=== PATIENT | male | born 1975 | race Caucasian/White ===

== ENCOUNTER 2017-06-17 07:00 | Emergency (ER) | payer OTHER ==
[~2017-06-17] VITALS: Ht 170.2 cm; Wt 72.6 kg
[~2017-06-17 07:00] MED LIST: ULTRAM50 MG PO
[2017-06-17] MEDS ORDERED: BACTRIM DS TAB1 EACH PO (08:23)
== END 2017-06-17 09:01 | disposition home or self-care (01) ==
LOC: ED 07:00
PROC: 0T9B70Z Drainage of Bladder with Drainage Device, Via Natural or Artificial Opening (ICD-10-PCS; principal; 2017-06-17)
DX: R33.9 Retention of urine, unspecified (principal); F17.200 Nicotine dependence, unspecified, uncomplicated
CPT/HCPCS: 51702; 81001; 99283

== ENCOUNTER 2017-06-19 12:32 | Emergency (ER) | payer OTHER ==
[~2017-06-19] VITALS: Ht 170.2 cm; Wt 72.6 kg
[~2017-06-19 12:32] MED LIST changes: +BACTRIM DS TAB1 EACH PO
[2017-06-19] MEDS ORDERED: VENTOLIN HFA18 GM INH (13:17)
[2017-06-19] MEDS ORDERED: FLOMAX0.4 MG PO (13:17)
== END 2017-06-19 14:29 | disposition home or self-care (01) ==
LOC: ED 12:32
PROC: 4A0D7LZ Measurement of Urinary Volume, Via Natural or Artificial Opening (ICD-10-PCS; principal; 2017-06-19)
PROC: 0T9B70Z Drainage of Bladder with Drainage Device, Via Natural or Artificial Opening (ICD-10-PCS; principal; 2017-06-19)
DX: N41.9 Inflammatory disease of prostate, unspecified (principal); R33.9 Retention of urine, unspecified; F17.200 Nicotine dependence, unspecified, uncomplicated; Z88.8 Allergy status to other drugs, medicaments and biological substances
CPT/HCPCS: 51702; 51798; 99284

== ENCOUNTER 2017-06-21 18:14 | Emergency (ER) | payer OTHER ==
[~2017-06-21] VITALS: Ht 170.2 cm; Wt 72.6 kg
[~2017-06-21 18:14] MED LIST changes: +FLOMAX0.4 MG PO; +VENTOLIN HFA18 GM INH
== END 2017-06-21 22:25 | disposition home or self-care (01) ==
LOC: ED 18:14
DX: K86.9 Disease of pancreas, unspecified (principal); F17.200 Nicotine dependence, unspecified, uncomplicated; Z79.899 Other long term (current) drug therapy
CPT/HCPCS: 76705; 80053; 81001; 83690; 85025; 96361; 96374; 96375; 99284; J1885; J2405; J7030

== ENCOUNTER 2017-07-19 13:32 | Emergency (ER) | payer OTHER ==
[~2017-07-19] VITALS: Ht 170.2 cm; Wt 72.6 kg
[2017-07-19] MEDS ORDERED: CIPRO500 MG PO (17:21)
== END 2017-07-19 17:30 | disposition home or self-care (01) ==
LOC: ED 13:32
DX: Z46.6 Encounter for fitting and adjustment of urinary device (principal); N41.9 Inflammatory disease of prostate, unspecified; F17.200 Nicotine dependence, unspecified, uncomplicated
CPT/HCPCS: 81001; 87491; 87591; 99283

== ENCOUNTER 2017-09-19 04:25 | Emergency (ER) | payer SELFPAY ==
[~2017-09-19] VITALS: Ht 170.2 cm; Wt 72.6 kg
[~2017-09-19 04:25] MED LIST changes: +CIPRO500 MG PO
== END 2017-09-19 06:30 | disposition home or self-care (01) ==
LOC: ED 04:25
DX: K52.9 Noninfective gastroenteritis and colitis, unspecified (principal); F17.200 Nicotine dependence, unspecified, uncomplicated
CPT/HCPCS: 80053; 85025; 96361; 96374; 96375; 99283; J2270; J2405; J2550; J7030

== ENCOUNTER 2018-10-26 20:57 | Emergency (ER) | payer SELFPAY ==
[~2018-10-26] VITALS: Ht 170.2 cm; Wt 77.1 kg
--- OUTSIDE RECORDS SUMMARY | 2018-10-26 21:00 | XMS ---
PreManage Notification: EBONY LENZ Security Willow Machine Tender Events No recent Security Events currently on file CRITERIA MET - Group Notification CARE PROVIDERS There are no care providers on record at this time. Graciela has no Care Guidelines for this patient. Facundo VISIT COUNT (12 MO.) 1 PATI Chow TOTAL 1 NOTE: Visits indicate total known visits. ED/UCC VISIT TRACKING (12 MO.) 10/26/2018 20:58 [facility] [place] TYPE: Emergency COMPLAINT: - R HAND PAIN INPATIENT VISIT TRACKING (12 MO.) No inpatient visits to display in this time frame [id number]
[2018-10-26] MEDS ORDERED: NAPROXEN500 MG PO (22:20)
== END 2018-10-26 22:28 | disposition home or self-care (01) ==
LOC: ED 20:57
DX: M65.88 Other synovitis and tenosynovitis, other site (principal); F17.200 Nicotine dependence, unspecified, uncomplicated
CPT/HCPCS: 29125; 73110; 99283-25

== ENCOUNTER 2019-10-13 09:45 | Emergency (ER) | payer SELFPAY ==
[~2019-10-13] VITALS: Ht 170.2 cm; Wt 77.1 kg
[~2019-10-13 09:45] MED LIST changes: +NAPROXEN500 MG PO
--- OUTSIDE RECORDS SUMMARY | 2019-10-13 09:48 | XMS ---
PreManage Notification: EBONY LENZ Security Advanced Practice Registered Nurse Events No recent Security Events currently on file CRITERIA MET - Group Notification CARE PROVIDERS There are no care providers on record at this time. Graciela has no Care Guidelines for this patient. Facundo VISIT COUNT (12 MO.) 2 PATI Chow TOTAL 2 NOTE: Visits indicate total known visits. ED/UCC VISIT TRACKING (12 MO.) 10/13/2019 09:46 [facility] [place] TYPE: Emergency COMPLAINT: - POSS ABSCESS 10/26/2018 20:[address] [facility] [place] TYPE: Emergency COMPLAINT: - R HAND PAIN/NO INJURY DIAGNOSES: - Pain in right wrist - Other synovitis and tenosynovitis, other site - Nicotine dependence, unspecified, uncomplicated INPATIENT VISIT TRACKING (12 MO.) No inpatient visits to display in this time frame [id number]
== END 2019-10-13 10:24 | disposition home or self-care (01) ==
LOC: ED 09:45
DX: K40.90 Unilateral inguinal hernia, without obstruction or gangrene, not specified as recurrent (principal); F17.200 Nicotine dependence, unspecified, uncomplicated; Z79.899 Other long term (current) drug therapy
CPT/HCPCS: 99283

== ENCOUNTER 2020-03-22 10:20 | Emergency (ER) | payer OTHER ==
[~2020-03-22] VITALS: Ht 170.2 cm; Wt 77.1 kg
--- OUTSIDE RECORDS SUMMARY | 2020-03-22 10:22 | XMS ---
PreManage Notification: EBONY LENZ Security Cryptologic Linguist Events No recent Security Events currently on file CRITERIA MET - Group Notification CARE PROVIDERS There are no care providers on record at this time. Graciela has no Care Guidelines for this patient. Facundo VISIT COUNT (12 MO.) 1 [facility] 2 PATI Chow TOTAL 3 NOTE: Visits indicate total known visits. [place] [place] (12 MO.) 03/22/2020 10:20 PAT[facility] [place] TYPE: Emergency COMPLAINT: - DOG BITE 01/06/2020 09:[address] [address] [facility] TYPE: Emergency DIAGNOSES: - back pain - Unilateral inguinal hernia, without obstruction or gangrene, - Sciatica, unspecified side 10/13/2019 09:46 [facility] [place] TYPE: Emergency COMPLAINT: - POSS ABSCESS DIAGNOSES: - Unilateral inguinal hernia, without obstruction or gangrene, - Right lower quadrant pain - Other group home (current) drug therapy - Nicotine dependence, unspecified, uncomplicated INPATIENT VISIT TRACKING (12 MO.) No inpatient visits to display in this time frame [id number]
[2020-03-22] MEDS ORDERED: AUGMENTIN 875-1 EACH PO (10:59)
== END 2020-03-22 11:24 | disposition home or self-care (01) ==
LOC: ED 10:20
DX: S51.851A Open bite of right forearm, initial encounter (principal); F17.200 Nicotine dependence, unspecified, uncomplicated; W54.0XXA Bitten by dog, initial encounter
CPT/HCPCS: 99283

== ENCOUNTER 2020-10-14 10:53 | Emergency (ER) | payer OTHER ==
[~2020-10-14] VITALS: Ht 170.2 cm; Wt 81.6 kg
[~2020-10-14 10:53] MED LIST changes: +AUGMENTIN 875-1 EACH PO
--- OUTSIDE RECORDS SUMMARY | 2020-10-14 10:56 | XMS ---
PreManage Notification: EBONY LENZ Security Forest Worker Events No recent Security Events currently on file CRITERIA MET - Group Notification - [facility] - 2 Visits in 30 Days CARE PROVIDERS There are no care providers on record at this time. Graciela has no Care Guidelines for this patient. Facundo VISIT COUNT (12 MO.) [facility] NOTE: Visits indicate total known visits. ED/C VISIT TRACKING (12 MO.) 10/14/2020 10:53 [facility] [place] TYPE: Emergency COMPLAINT: - UNABLE TO URINATE [facility] DIAGNOSES: - Hernia - Elevation of levels of liver transaminase levels - Residual hemorrhoidal skin tags - Other retention of urine - poss hernia; constipation - Unilateral inguinal hernia, without obstruction or gangrene, not specified as recurrent 03/22/2020 10:[address] [facility] [address] [facility] TYPE: Emergency COMPLAINT: - DOG BITE DIAGNOSES: - Open bite of right forearm, initial encounter - Nicotine dependence, unspecified, uncomplicated - Bitten by dog, initial encounter [facility]/06/2020 09[facility] DIAGNOSES: - back pain - Unilateral inguinal hernia, without obstruction or gangrene, not specified as recurrent - Sciatica, unspecified side INPATIENT VISIT TRACKING (12 MO.) No inpatient visits to display in this time frame [id number]
[2020-10-14] MEDS ORDERED: CIPRO500 MG PO (14:21)
[2020-10-14] MEDS ORDERED: FLOMAX0.4 MG PO (14:21)
== END 2020-10-14 14:36 | disposition home or self-care (01) ==
LOC: ED 10:53
PROC: 06BY0ZC Excision of Hemorrhoidal Plexus, Open Approach (ICD-10-PCS; principal; 2020-10-14)
PROC: 4A0D7LZ Measurement of Urinary Volume, Via Natural or Artificial Opening (ICD-10-PCS; 2020-10-14)
DX: N41.9 Inflammatory disease of prostate, unspecified (principal); K64.5 Perianal venous thrombosis
CPT/HCPCS: 46083; 51798; 81001; 99283-25; A9270

== ENCOUNTER 2021-06-07 16:14 | Emergency (ER) | payer OTHER ==
[~2021-06-07] VITALS: Ht 170.2 cm; Wt 81.7 kg
--- OUTSIDE RECORDS SUMMARY | 2021-06-07 16:22 | XMS ---
PreManage Notification: EBONY LENZ Security Tree Wrapper Events No recent Security Events currently on file CRITERIA MET - Group Notification CARE PROVIDERS There are no care providers on record at this time. Graciela has no Care Guidelines for this patient. Facundo VISIT COUNT (12 MO.) 1 Greg Cha [facility] 2 PATI Chow TOTAL 3 NOTE: Visits indicate total known visits. ED/C VISIT TRACKING (12 MO.) 06/07/2021 16:14 [facility] [place] TYPE: Emergency COMPLAINT: - RT FORE ARM INJURY 10/14/2020 10:53 [facility] [place] TYPE: Emergency COMPLAINT: - UNABLE TO URINATE DIAGNOSES: - Perianal venous thrombosis - Inflammatory disease of prostate, unspecified - Dysuria [facility]12[facility]2020 [facility] DIAGNOSES: - Hernia - Elevation of levels of liver transaminase levels - Residual hemorrhoidal skin tags - Other retention of urine - poss hernia; constipation - Unilateral inguinal hernia, without obstruction or gangrene, not specified as recurrent INPATIENT VISIT TRACKING (12 MO.) No inpatient visits to display in this time frame [id number]
== END 2021-06-07 17:47 | disposition home or self-care (01) ==
LOC: ED 16:14
DX: S61.511A Laceration without foreign body of right wrist, initial encounter (principal); W01.198A Fall on same level from slipping, tripping and stumbling with subsequent striking against other object, initial encounter
CPT/HCPCS: 12001; 73110; 99283-25

== ENCOUNTER 2021-10-06 14:10 | Emergency (ER) | payer OTHER ==
[~2021-10-06] VITALS: Ht 170.2 cm; Wt 79.4 kg
--- OUTSIDE RECORDS SUMMARY | 2021-10-06 14:18 | XMS ---
PreManage Notification: EBONY LENZ Security Flat Drier Events No recent Security Events currently on file CRITERIA MET - Group Notification - [facility] - 2 Visits in 30 Days CARE PROVIDERS There are no care providers on record at this time. Graciela has no Care Guidelines for this patient. Facundo VISIT COUNT (12 MO.) [address] TOTAL 7 NOTE: Visits indicate total known visits. [facility] [place] [facility] V[facility]IT TRACKING (12 MO.) [facility] [place] [place] [facility] COMPLAINT: - UNABLE TO URINATE 09/29/2021 19:08 [facility] [place] TYPE: Emergency COMPLAINT: - HERNIA DIAGNOSES: - HERNIA 09/29/2021 16:12 [facility] [place] TYPE: Emergency COMPLAINT: - R SIDE GROIN PAIN 06/23/2021 11:15 [facility] Robert RAMIRE[facility] TYPE: Emergency DIAGNOSES: - poss hernia - Hernia - Unilateral inguinal hernia, without obstruction or gangrene, recurrent - Medical Problem (Re-evaluation) 06/07/2021 16:14 [facility] [place] TYPE: Emergency COMPLAINT: - RT FORE ARM INJURY DIAGNOSES: - Fall on same level from slipping, tripping and stumbling with subsequent striking against other object, initial encounter - Laceration without foreign body of right wrist, initial encounter 10/14/2020 10:53 PATI Buchanan TYPE: Emergency COMPLAINT: - UNABLE TO URINATE DIAGNOSES: - Perianal venous thrombosis - Inflammatory disease of prostate, unspecified - Dysuria 10[facility]12/2020 [facility] DIAGNOSES: - Hernia - Elevation of levels of liver transaminase levels - Residual hemorrhoidal skin tags - Other retention of urine - poss hernia; constipation - Unilateral inguinal hernia, without obstruction or gangrene, not specified as recurrent INPATIENT VISIT TRACKING (12 MO.) No inpatient visits to display in this time frame [id number]
[2021-10-06] MEDS ORDERED: PYRIDIUM200 MG PO (19:01)
[2021-10-06] MEDS ORDERED: CEPHALEXIN500 M1 PO (19:01)
[2021-10-06] MEDS ORDERED: FLOMAX0.4 MG PO (19:01)
== END 2021-10-06 19:12 | disposition home or self-care (01) ==
LOC: ED 14:10
DX: N39.0 Urinary tract infection, site not specified (principal)
CPT/HCPCS: 51702; 51798; 81001; 99283-25; A9270

== ENCOUNTER 2022-01-31 07:12 | Emergency (ER) | payer OTHER ==
[~2022-01-31] VITALS: Ht 167.6 cm; Wt 79.4 kg
[~2022-01-31 07:12] MED LIST changes: +CEPHALEXIN500 M1 PO; +PYRIDIUM200 MG PO
--- OUTSIDE RECORDS SUMMARY | 2022-01-31 07:20 | XMS ---
PreManage Notification: EBONY LENZ Security Hot Plate Plywood Press Offbearer Events 1 event(s) in the past 18 months Most recent security events: Elopement at [facility] 09/29/2021 16:12 Details: PATIENT LEFT AMA CRITERIA MET - Group Notification CARE PROVIDERS There are no care providers on record at this time. Graciela has no Care Guidelines for this patient. ERenita VISIT COUNT (12 MO.) 1 [facility] 1 [facility] 4 [facility]. TOTAL 6 NOTE: Visits indicate total known visits. ED/C VISIT TRACKING (12 MO.) 01/31/2022 07:[address] [facility] [place] TYPE: Emergency COMPLAINT: - MULTIPLE COMPLAINTS 10/06/2021 14:[address] [facility] [place] TYPE: Emergency COMPLAINT: - UNABLE TO URINATE DIAGNOSES: - Dysuria - Dysuria - Urinary tract infection, site not specified 09/29/2021 19:08 [facility] [place] TYPE: Emergency COMPLAINT: - HERNIA DIAGNOSES: - HERNIA 09/29/2021 16:[address] [facility] [place] TYPE: Emergency COMPLAINT: - R SIDE GROIN PAIN 06/23/2021 11:15 [facility] Robert RAMIRE[facility] TYPE: Emergency DIAGNOSES: - poss [...] foreign body of right wrist, initial encounter INPATIENT VISIT TRACKING (12 MO.) No inpatient visits to display in this time frame [id number]
[2022-01-31] MEDS ORDERED: AMOXICILLIN500 MG PO (07:46)
== END 2022-01-31 07:59 | disposition home or self-care (01) ==
LOC: ED 07:12
DX: H60.92 Unspecified otitis externa, left ear (principal); K40.90 Unilateral inguinal hernia, without obstruction or gangrene, not specified as recurrent; J32.9 Chronic sinusitis, unspecified
CPT/HCPCS: 99282

== ENCOUNTER 2023-03-25 20:32 | Emergency (ER) | payer OTHER ==
[~2023-03-25] VITALS: Ht 167.6 cm; Wt 77.1 kg
--- OUTSIDE RECORDS SUMMARY | ~2023-03-25 | XMS | Continuity of Care Document ---
Demographics + + + | Address | [address] | | | [place] [address] | + + + | Preferred Language | Unknown | + + + | Marital Status | Never | + + + | Christianity Affiliation | Unknown | + + + | Race | White | + + + | Ethnic Group | Not or | + + + Author + + + | Author | [facility] | + + + | Organization | [facility] | + + + | Address | [address] | | | [place] [address] | + + + | Phone | | + + + Care Team Providers + + + + | Care Saw Man Name | Role | Phone | + + + + Unavailable | Unavailable | + + + + Unavailable | Unavailable | + + + + Allergies and Intolerances + + + + + + | date | description | facility | reaction | severity | + + + + + + | (no date) | No Known Drug | [facility] | (no reaction) | (no severity) | | | Allergies | | | | + + + + + + Encounters No information. Functional Status No information. Immunizations No information. Medications + + + + | date | description | facility | + + + + | 2021-10-06 00:00 | PHENAZOPYRIDINE HCL | [facility] | + + + + | 2021-10-06 00:00 | CEPHALEXIN | [facility] | + + + + | 2018-10-26 00:00 | NAPROXEN | [facility] | + + + + | 2017-07-19 00:00 | CIPROFLOXACIN HCL | [facility] | + + + + | 2020-10-14 00:00 | CIPROFLOXACIN HCL | [facility] | + + + + | 2022-01-31 00:00 | AMOXICILLIN | [facility] | + + + + | 2020-03-22 00:00 | AMOXICILLIN/POTASSIUM CLAV | [facility] | | | | | + + + + | 2013-05-27 00:00 | TRAMADOL HCL | [facility] | + + + + | 2017-06-17 00:00 | | [facility] | | | SULFAMETHOXAZOLE/TRIMETHOPR | | | | IM DS | | + + + + | 2017-06-19 00:00 | ALBUTEROL SULFATE | [facility] | + + + + | 2017-06-19 00:00 | TAMSULOSIN HCL | [facility] | + + + + | 2020-10-14 00:00 | TAMSULOSIN HCL | [facility] | + + + + | 2021-10-06 00:00 | TAMSULOSIN HCL | [facility] | + + + + Problems + + + + | date | description | facility | + + + + | 2017-06-17 00:00 | Retention of urine | [facility] | + + + + | 2017-06-19 00:00 | Prostatitis | [facility] | + + + + | 2017-06-21 00:00 | Abdominal pain | [facility] | + + + + | 2017-07-19 00:00 | Encounter for Erazo | [facility] | | | catheter removal | | + + + + | 2017-09-19 00:00 | Acute gastroenteritis | [facility] | + + + + | 2019-10-13 00:00 | Right inguinal hernia | [facility] | + + + + | 2020-03-22 00:00 | Dog bite of right upper | [facility] | | | extremity | | + + + + | 2020-10-14 00:00 | Thrombosed external | [facility] | | | hemorrhoids | | + + + + | 2021-09-29 00:00 | Left against medical | [facility] | | | advice | | + + + + | 2021-10-06 00:00 | Urinary tract infection | [facility] | + + + + | 2022-01-31 00:00 | Otitis externa of left ear | [facility] | | | | | + + + + | 2022-01-31 00:00 | Sinusitis | [facility] | + + + + | 2022-08-11 08:44 | CHRONIC OBSTRUCTIVE | [facility] | | | PULMONARY DISEASE W (ACUTE) | | | | EX | | + + + + | 2022-08-11 08:44 | SHORTNESS OF BREATH | [facility] | + + + + | 2023-03-20 19:39 | OTHER STIMULANT USE, | [facility] | | | UNSPECIFIED, UNCOMPLICATED | | + + + + | 2023-03-20 19:39 | NICOTINE DEPENDENCE, | [facility] | | | UNSPECIFIED, UNCOMPLICATED | | + + + + | 2023-03-20 19:39 | Essential (primary) | [facility] | | | hypertension | | + + + + | 2023-03-20 19:39 | CHRONIC OBSTRUCTIVE | [facility] | | | PULMONARY DISEASE, | | | | UNSPECIFIED | | + + + + | 2023-03-20 19:39 | SHORTNESS OF BREATH | [facility] | + + + + Procedures No information. Results/Labs +--------+--------+ +---------+--------+---------+ | test | date | facility | value | unit | notes | +--------+--------+ +---------+--------+---------+ + + | Result panel 1 | + + + + + + + + + | | 2021-10-06 [facility] YELLOW | (missing) | (missing) | | (unavailable [facility] | | | | + + + + + + + + + | Result panel 2 | + + + + + + + + + | | 2021-10-06 | [facility] | NORMAL | (missing) | (missing) | | (unavailable | [facility] | | | | + + + + + + + + + | Result panel 3 | + + + + + + + + + | | 2021-10-06 | [facility] | NEGATIVE | (missing) | (missing) | | (unavailable [facility] | | | | + + + + + + + + + | Result panel 4 | + + + + + + + + + | | 2021-10-06 | [facility] | NEGATIVE | (missing) | (missing) | | (unavailable [facility] | | | | + + + + + + + + + | Result panel 5 | + + + + + +---------+ + + | | 2021-10-06 | [facility] | 21-40 | (missing) | (missing) | | (unavailable | [facility] | | | | + + + +---------+ + + + + | Result panel 6 | + + + + + +--------+ + + | | 2021-10-06 | [facility] | 7-11 | (missing) | (missing) | | (unavailable | [facility] | | | | + + + +--------+ + + + + | Result panel 7 | + + + + + +------+ + + | | 2021-10-06 | [facility] | NS | (missing) | (missing) | | (unavailable | [facility] | | | | + + + +------+ + + + + | Result panel 8 | + + + + + +------+ + + | | 2021-10-06 | [facility] | 1+ | (missing) | (missing) | | (unavailable | [facility] | | | | + + + +------+ + + + + | Result panel 9 | + + + + + +-------+ + + | | 2021-10-06 | [facility] | Yes | (missing) | (missing) | | (unavailable [facility] | | | | + + + +-------+ + + + + | Result panel 10 | + + + + + + + + + | | 2021-10-06 | [facility] | CLEAN CATCH | (missing) | (missing) | | (unavailable | [facility] | | | | + + + + + + + + + | Result panel 11 | + + + + + +---------+ + + | | 2021-10-06 | [facility] | CLEAR | (missing) | (missing) | | (unavailable | [facility] | | | | + + + +---------+ + + + + | Result panel 12 | + + + + + + + + + | | 2021-10-06 | [facility] | NEGATIVE | (missing) | (missing) | | (unavailable | [facility] | | | | + + + + + + + + + | Result panel 13 | + + + + + + + + + | | 2021-10-06 | [facility] | NEGATIVE | (missing) | (missing) | | (unavailable | [facility] | | | | + + + + + + + + + | Result panel 14 | + + + + + + + + + | | 2021-10-06 | [facility] | NEGATIVE | (missing) | (missing) | | (unavailable | [facility] | | | | + + + + + + + + + | Result panel 15 | + + + + + +---------+ + + | | 2021-10-06 | [facility] | 1.025 | (missing) | (missing) | | (unavailable | [facility] | | | | + + + +---------+ + + + + | Result panel 16 | + + + + + +---------+ + + | | 2021-10-06 | [facility] | LARGE | (missing) | (missing) | | (unavailable | [facility] | | | | + + + +---------+ + + + + | Result panel 17 | + + + + + +-------+ + + | | 2021-10-06 | [facility] | 7.5 | (missing) | (missing) | | (unavailable | [facility] | | | | + + + +-------+ + + + + | Result panel 18 | + + + + + +-------+ + + | | 2021-10-06 | [facility] | 100 | (missing) | (missing) | | (unavailable | [facility] | | | | + + + +-------+ + + Social History No information. Vital Signs + + + +---------+ | date | measurement | value | units | + + + +---------+ | 2021-09-29 00:00 | BMI | 28.2 | kg/m2 | + + + +---------+ | 2021-09-29 00:00 | BP_diastolic | 81 | mmHg | + + + +---------+ | 2021-09-29 00:00 | BP_systolic | 137 | mmHg | + + + +---------+ | 2021-09-29 00:00 | heart_rate | 101 | /min | + + + +---------+ | 2021-09-29 00:00 | height_metric | 170.18 | cm | + + + +---------+ | 2021-09-29 00:00 | height_standard | 67 | in | + + + +---------+ | 2021-09-29 00:00 | o2_saturation | 100 | % | + + + +---------+ | 2021-09-29 00:00 | respiration_rate | 18 | /min | + + + +---------+ | 2021-09-29 00:00 | temperature_metric | 37.22 | C | | | | | | + + + +---------+ | 2021-09-29 00:00 | | 99 | F | | | temperature_standar | | | | | d | | | + + + +---------+ | 2021-09-29 00:00 | weight_metric | 81.65 | kg | + + + +---------+ | 2021-09-29 00:00 | weight_standard | 180 | lb | + + + +---------+ | 2021-09-29 00:00 | weight_standard | 180.01 | lb | + + + +---------+ | 2021-10-06 00:00 | BMI | 27.4 | kg/m2 | + + + +---------+ | 2021-10-06 00:00 | BP_diastolic | 90 | mmHg | + + + +---------+ | 2021-10-06 00:00 | BP_systolic | 140 | mmHg | + + + +---------+ | 2021-10-06 00:00 | heart_rate | 85 | /min | + + + +---------+ | 2021-10-06 00:00 | height_metric | 170.18 | cm | + + + +---------+ | 2021-10-06 00:00 | height_standard | 67 | in | + + + +---------+ | 2021-10-06 00:00 | o2_saturation | 98 | % | + + + +---------+ | 2021-10-06 00:00 | respiration_rate | 16 | /min | + + + +---------+ | 2021-10-06 00:00 | temperature_metric | 36.94 | C | | | | | | + + + +---------+ | 2021-10-06 00:00 | | 98.5 | F | | | temperature_standar | | | | | d | | | + + + +---------+ | 2021-10-06 00:00 | weight_metric | 79.38 | kg | + + + +---------+ | 2021-10-06 00:00 | weight_standard | 175 | lb | + + + +---------+ | 2022-01-31 00:00 | BMI | 28.2 | kg/m2 | + + + +---------+ | 2022-01-31 00:00 | BP_diastolic | 95 | mmHg | + + + +---------+ | 2022-01-31 00:00 | BP_systolic | 149 | mmHg | + + + +---------+ | 2022-01-31 00:00 | heart_rate | 99 | /min | + + + +---------+ | 2022-01-31 00:00 | height_metric | 167.64 | cm | + + + +---------+ | 2022-01-31 00:00 | height_standard | 66 | in | + + + +---------+ | 2022-01-31 00:00 | o2_saturation | 100 | % | + + + +---------+ | 2022-01-31 00:00 | respiration_rate | 16 | /min | + + + +---------+ | 2022-01-31 00:00 | temperature_metric | 36.83 | C | | | | | | + + + +---------+ | 2022-01-31 00:00 | | 98.3 | F | | | temperature_standar | | | | | d | | | + + + +---------+ | 2022-01-31 00:00 | weight_metric | 79.38 | kg | + + + +---------+ | 2022-01-31 00:00 | weight_standard | 175 | lb | + + + +---------+"
[~2023-03-25 20:32] MED LIST changes: +AMOXICILLIN500 MG PO; +PREDNISONE20 MG PO
--- OUTSIDE RECORDS SUMMARY | 2023-03-25 20:36 | XMS ---
PreManage Notification: EBONY LENZ Security Scientific Specialist Events 1 event(s) in the past 18 months Most recent security events: Elopement at [facility] 09/29/2021 16:12 Details: PATIENT LEFT AMA CRITERIA MET - Group Notification - [facility] - 2 Visits in 30 Days CARE PROVIDERS -Tre- Dentist: Quality Process Auditor [facility] PHONE: [phone] Graciela has no Care Guidelines for this patient. Facundo VISIT COUNT (12 MO.) 3 [facility]. TOTAL 3 NOTE: Visits indicate total known visits. ED/C VISIT TRACKING (12 MO.) 03/25/2023 20:32 [facility] [place] TYPE: Emergency COMPLAINT: - SOB 03/20/2023 19:39 [facility] [place] TYPE: Emergency COMPLAINT: - SOB DIAGNOSES: - Chronic obstructive pulmonary disease, unspecified - Contact with and (suspected) exposure to COVID-19 - Essential (primary) hypertension - Nicotine dependence, unspecified, uncomplicated - Other stimulant use, unspecified, uncomplicated - Shortness of breath 08/11/2022 08:44 [facility] [place] TYPE: Emergency COMPLAINT: - DIFFICULTY BREATHING DIAGNOSES: - Chronic obstructive pulmonary disease with (acute) exacerbation - Contact with and (suspected) exposure to COVID-19 - Shortness of breath INPATIENT VISIT TRACKING (12 MO.) No inpatient visits to display in this time frame [id number]
[2023-03-25 20:41] LABS: PH, VENOUS 7.371 (7.31-7.41)
[2023-03-25 20:44] LABS: BASOPHILS 0.8 % (0-2); EOSINOPHILS 4.8 % (0-6); HEMATOCRIT 39.9 % (35.0-50.0); HEMOGLOBIN 13.2 g/dL (12.0-18.0); LYMPHOCYTES 5.7 % (24-44); MCH 29.6 (27-36); MCHC 32.9 g/dl (30-36); MCV 89.9 fl (81-99); NEUTROPHILS 83.7 % (39-80); PLATELET COUNT 347 K/uL (140-440); RBC 4.44 M/ul (4.3-5.7); RDW 13.6 (10.5-15.0)
[2023-03-25 21:07] LABS: ALBUMIN 3.3 g/dL (3.4-5.0); ALBUMIN/GLOBULIN RATIO 0.83 (1.1-2.4); ANION GAP 12.7 (7-21); BILIRUBIN, TOTAL 0.4 ng/dL (0.2-1.0); BUN/CREATININE RATIO 24.41 (6.0-28.6); CALCIUM 8.9 mg/dL (8.5-10.1); CREATININE, SERUM 0.86 mg/dL (0.70-1.30); POTASSIUM 3.7 mmol/L (3.5-5.1); PROTEIN, TOTAL 7.3 g/dL (6.4-8.2)
[2023-03-25 21:32] LABS: INFLUENZA B NAA NEGATIVE (NEGATIVE); RESPIRATORY SYNCYTIAL VIR NAA NEGATIVE (NEGATIVE)
[2023-03-25] MEDS ORDERED: AZITHROMYCIN500 MG PO (21:38)
[2023-03-25] MEDS ORDERED: COMBIVENT RESPIM4 GM INH (21:41)
[2023-03-25 21:55] VITALS: BP 146/94
[2023-03-26] MEDS ORDERED: COMBIVENT RESPIM4 GM INH (06:27)
--- NOTE | 2023-03-26 19:22 | EKG ---
[facility] [address] [place] [address] Signed Normal sinus rhythm Normal ECG When compared with ECG of 20-MAR-2023 20:04, No significant change was found Confirmed by STORM WEBBER MD ([id number]) on 03/26/2023 7:22:40 PM Electronically Signed By: STORM WEBBER 03/26/231921 PATIENT NAME: EBONY LENZ MOUNIKA Electrocardiogram DATE OF : 71 PHYSICIAN: STORM WEBBER REPORT #: [id number] REPORT IS CONFIDENTIAL AND NOT TO BE RELEASED WITHOUT AUTHORIZATION
== END 2023-03-25 21:55 | disposition home or self-care (01) ==
LOC: ED 20:32
PROVIDERS: Family Medicine
DX: J18.9 Pneumonia, unspecified organism (principal)
CPT/HCPCS: 36415; 71045; 80053; 82803; 83880; 84484; 85025; 85379; 87502; 93005; 93010; 94640; 96374; 99285-25; C9803; J2270; U0002

== ENCOUNTER 2023-06-12 12:23 | Emergency (ER) | payer OTHER ==
[~2023-06-12] VITALS: Ht 167.6 cm; Wt 71.5 kg
[~2023-06-12 12:23] MED LIST changes: +AMOX TR-K CLV1 EAC1 PO; +AZITHROMYCIN500 MG PO; +COMBIVENT RESPIM4 GM INH
--- OUTSIDE RECORDS SUMMARY | 2023-06-12 12:30 | XMS ---
PreManage Notification: EBONY LENZ Security Newspaper Writer Events No recent Security Events currently on file CRITERIA MET - Group Notification CARE PROVIDERS -, Tre- Dentist: Game Tester [facility] PHONE: [phone] Graciela has no Care Guidelines for this patient. ERenita VISIT COUNT (12 MO.) 5 [facility] TOTAL 5 NOTE: Visits indicate total known visits. ED/UCC VISIT TRACKING (12 MO.) 06/12/2023 12:24 [facility] [place] TYPE: Emergency COMPLAINT: - POSS FINGUR INFECTION 04/07/2023 05:45 [facility] [place] TYPE: Emergency COMPLAINT: - SOB DIAGNOSES: - Chronic obstructive pulmonary disease with (acute) exacerbation - Other residential (current) drug therapy - Shortness of breath 03/25/2023 20:32 [facility] [place] TYPE: Emergency COMPLAINT: - SOB DIAGNOSES: - Pneumonia, unspecified organism - Shortness of breath 03/20/2023 19:39 [facility] [place] TYPE: Emergency [...] visits to display in this time frame [id number]
[2023-06-12 13:05] LABS: HEMOGLOBIN 13.6 g/dL (12.0-18.0)
[2023-06-12 13:08] LABS: HEMATOCRIT 41.1 % (35.0-50.0)
[2023-06-12 13:10] LABS: BASOPHILS 1.1 % (0-2); EOSINOPHILS 3.6 % (0-6); LYMPHOCYTES 16.7 % (24-44); MCH 30.4 (27-36); MCV 92.1 fl (81-99); MONOCYTES 7.7 % (0-12); NEUTROPHILS 70.9 % (39-80); PLATELET COUNT 281 K/uL (140-440); RBC 4.46 M/ul (4.3-5.7); RDW 14.1 (10.5-15.0)
[2023-06-12] MEDS ORDERED: BACTRIM DS TAB1 EACH PO (14:09)
[2023-06-12] MEDS ORDERED: HYDROCODON-ACE1 EA10 PO (14:09)
[2023-06-12 14:15] VITALS: BP 119/93
== END 2023-06-12 14:15 | disposition home or self-care (01) ==
LOC: ED 12:23
PROVIDERS: Family Medicine
DX: L03.012 Cellulitis of left finger (principal); J44.9 Chronic obstructive pulmonary disease, unspecified
CPT/HCPCS: 36415; 73130; 85025